=== PATIENT | female | born 1945 | race Caucasian/White ===

== ENCOUNTER 2019-11-22 13:25 | Emergency (ER) | payer MEDICARE, OTHER ==
[~2019-11-22] VITALS: Ht 175.3 cm; Wt 97.3 kg
[2019-11-22 14:06] LABS: BASOPHILS # (AUTO) 0.1 X10'3 (0-0.2); BASOPHILS % (AUTO) 1.1 % (0-1); EOSINOPHILS # (AUTO) 0.1 X10'3 (0-0.9); EOSINOPHILS % (AUTO) 1.7 % (0-6); HEMOGLOBIN 13.9 g/dl (12.0-16.0); LYMPHOCYTES # (AUTO) 1.5 X10'3 (1.1-4.8); LYMPHOCYTES % (AUTO) 23.3 % (21-51); MEAN CORPUSCULAR HEMOGLOBIN 32.1 PG (27.0-31.0); MEAN CORPUSCULAR HGB CONC 35.5 g/dL (33.0-36.5); MEAN CORPUSCULAR VOLUME 90.4 FL (78-98); MEAN PLATELET VOLUME 7.2 FL (7.4-10.4); MONOCYTES # (AUTO) 0.3 X10'3 (0-0.9); MONOCYTES % (AUTO) 5.4 % (2-12); NEUTROPHILS # (AUTO) 4.3 X10'3 (1.8-7.7); NEUTROPHILS % (AUTO) 68.5 % (42-75); PLATELET COUNT 223 X10'3 (140-440); RED BLOOD COUNT 4.31 X10'6 (4.20-5.60); WHITE BLOOD COUNT 6.3 X10'3 (4.5-11.0)
[2019-11-22 14:19] LABS: ALANINE AMINOTRANSFERASE 26 U/L (12-78); ALBUMIN 3.9 G/DL (3.4-5.0); ALBUMIN/GLOBULIN RATIO 1.1 (1.1-1.5); ALKALINE PHOSPHATASE 177 IU/L (46-116); ANION GAP 12 (8-16); ASPARTATE AMINO TRANSFERASE 20 U/L (10-37); BILIRUBIN,TOTAL 0.5 MG/DL (0.1-1.0); BLOOD UREA NITROGEN 13 MG/DL (7-18); BUN/CREATININE RATIO 13.3 (6.6-38.0); CALCIUM 10.1 MG/DL (8.5-10.1); CHLORIDE 101 MMOL/L (99-107); CREATININE 0.98 MG/DL (0.40-0.90); GLUCOSE 153 MG/DL (70-104); POTASSIUM 4.4 MMOL/L (3.5-5.1); SODIUM 138 MMOL/L (135-145); TOTAL CARBON DIOXIDE 25.4 MMOL/L (24-32); TOTAL PROTEIN 7.6 G/DL (6.4-8.2); eGFR 55 ML/MIN
[2019-11-22] MEDS ORDERED: ketorolac trometh inj. 60 MG/2 ML VIAL IM ONE (14:20)
[2019-11-22] MEDS ORDERED: LIDOcaine Viscous 15ml cup MM ONE (14:45)
[2019-11-22] MEDS ORDERED: mag hydrox/Alum hydrox/simeth 30ml oral suspension PO ONE (14:45)
[2019-11-22 15:00] VITALS: BP 155/80
== END 2019-11-22 16:18 | disposition home or self-care (01) ==
LOC: ER 13:27
DX: R07.89 Other chest pain (principal); R10.13 Epigastric pain; R05 Cough; Z85.3 Personal history of malignant neoplasm of breast
CPT/HCPCS: 36415; 71045; 80053; 84484; 85025; 93005; 96372; 99284; J1885

== ENCOUNTER 2020-01-15 14:43 | Emergency (ER) | payer MEDICARE, OTHER ==
[~2020-01-15] VITALS: Ht 175.3 cm; Wt 98.6 kg
[2020-01-15] MEDS ORDERED: normal saline 1000ML IV soln IVB ONE (15:45)
--- NOTE | 2020-01-15 16:05 | NUR ---
pt returns from ct
[2020-01-15 16:16] VITALS: BP 146/78
[2020-01-15 16:36] LABS: BASOPHILS # (AUTO) 0.1 X10'3 (0-0.2); BASOPHILS % (AUTO) 1.5 % (0-1); EOSINOPHILS # (AUTO) 0.4 X10'3 (0-0.9); HEMATOCRIT 37.6 % (35.0-45.0); HEMOGLOBIN 13.3 g/dl (12.0-16.0); LYMPHOCYTES # (AUTO) 1.3 X10'3 (1.1-4.8); LYMPHOCYTES % (AUTO) 21.6 % (21-51); MEAN CORPUSCULAR HEMOGLOBIN 31.5 PG (27.0-31.0); MEAN CORPUSCULAR HGB CONC 35.4 g/dL (33.0-36.5); MEAN CORPUSCULAR VOLUME 89.1 FL (78-98); MEAN PLATELET VOLUME 6.9 FL (7.4-10.4); MONOCYTES # (AUTO) 0.5 X10'3 (0-0.9); NEUTROPHILS # (AUTO) 3.8 X10'3 (1.8-7.7); NEUTROPHILS % (AUTO) 62.9 % (42-75); PLATELET COUNT 216 X10'3 (140-440); RED BLOOD COUNT 4.22 X10'6 (4.20-5.60); RED CELL DISTRIBUTION WIDTH 13.2 % (11.5-14.5)
[2020-01-15 16:45] LABS: ALANINE AMINOTRANSFERASE 20 U/L (12-78); ALBUMIN 3.5 G/DL (3.4-5.0); ALBUMIN/GLOBULIN RATIO 0.9 (1.1-1.5); ALKALINE PHOSPHATASE 202 IU/L (46-116); ANION GAP 6 (8-16); ASPARTATE AMINO TRANSFERASE 22 U/L (10-37); BILIRUBIN,TOTAL 0.4 MG/DL (0.1-1.0); BLOOD UREA NITROGEN 16 MG/DL (7-18); BUN/CREATININE RATIO 17.4 (6.6-38.0); CALCIUM 9.6 MG/DL (8.5-10.1); CHLORIDE 105 MMOL/L (99-107); CREATININE 0.92 MG/DL (0.40-0.90); GLUCOSE 247 MG/DL (70-104); POTASSIUM 3.9 MMOL/L (3.5-5.1); SODIUM 138 MMOL/L (135-145); TOTAL CARBON DIOXIDE 27.2 MMOL/L (24-32); TOTAL PROTEIN 7.3 G/DL (6.4-8.2); eGFR 59 ML/MIN
[2020-01-15] MEDS: morphine 4 MG/ML inj SYRINge IV PRN ×2 (16:47→17:18)
[2020-01-15 16:48] LABS: LIPASE 121 U/L (73-393); TROPONIN I < 0.04 NG/ML (0.0-0.05)
[2020-01-15] MEDS ORDERED: HYDR-3965 PO (17:04)
[2020-01-15] MEDS ORDERED: AMOX-117 PO (17:07)
== END 2020-01-15 17:39 | disposition home or self-care (01) ==
LOC: ER 14:43
DX: C79.89 Secondary malignant neoplasm of other specified sites (principal); C50.919 Malignant neoplasm of unspecified site of unspecified female breast; M54.9 Dorsalgia, unspecified; Z79.2 Long term (current) use of antibiotics; Z79.899 Other long term (current) drug therapy
CPT/HCPCS: 36415; 74176; 80053; 83690; 84484; 85025; 93005; 96374; 96376; 99285; J2270; J7030

== ENCOUNTER 2020-05-07 16:15 | Emergency (ER) | payer OTHER ==
[~2020-05-07] VITALS: Ht 170.2 cm; Wt 100.0 kg
[2020-05-07 16:22] VITALS: BP 186/91
--- NOTE | 2020-05-07 17:12 | NUR ---
pt is 75 yo female c/o neck pain since 0800 today, no recent falls/trauma, no loss of bowel/bladder, decreased ROM to neck due to pain, h/o breast cancer with mets to left hip, spine, neck, pelvis, being treated with supplements and holistic care, mets was dx in 01/16, no follow up except with holistic provider,
[2020-05-07] MEDS ORDERED: ketorolac tromethamine 15mg/ml inj. IM ONE (17:55)
[2020-05-07] MEDS ORDERED: orphenadrine citrate 60mg/2ml inj. IM ONE (17:55)
[2020-05-07] MEDS ORDERED: NAPR-56 PO (17:55)
[2020-05-07] MEDS ORDERED: METH-360 PO (17:55)
== END 2020-05-07 18:42 | disposition home or self-care (01) ==
LOC: ER 16:16
DX: M54.2 Cervicalgia (principal); G89.29 Other chronic pain; Z85.3 Personal history of malignant neoplasm of breast; Z79.899 Other long term (current) drug therapy
CPT/HCPCS: 96372; 99284; J1885; J2360

== ENCOUNTER 2021-01-15 08:26 | Emergency (ER) | payer OTHER ==
[~2021-01-15] VITALS: Ht 175.3 cm; Wt 94.1 kg
[~2021-01-15 08:26] MED LIST: METH-360 PO
[2021-01-15 08:51] LABS: BASOPHILS # (AUTO) 0.1 X10'3 (0-0.2); BASOPHILS % (AUTO) 0.9 % (0-1); EOSINOPHILS % (AUTO) 0.8 % (0-6); HEMATOCRIT 34.5 % (35.0-45.0); HEMOGLOBIN 11.9 g/dl (12.0-16.0); LYMPHOCYTES % (AUTO) 17.3 % (21-51); MEAN CORPUSCULAR HEMOGLOBIN 30.4 PG (27.0-31.0); MEAN CORPUSCULAR HGB CONC 34.3 g/dL (33.0-36.5); MEAN CORPUSCULAR VOLUME 88.7 FL (78-98); MEAN PLATELET VOLUME 6.3 FL (7.4-10.4); MONOCYTES # (AUTO) 0.3 X10'3 (0-0.9); MONOCYTES % (AUTO) 4.8 % (2-12); NEUTROPHILS # (AUTO) 4.5 X10'3 (1.8-7.7); NEUTROPHILS % (AUTO) 76.2 % (42-75); PLATELET COUNT 276 X10'3 (140-440); RED BLOOD COUNT 3.89 X10'6 (4.20-5.60); RED CELL DISTRIBUTION WIDTH 14.5 % (11.5-14.5); WHITE BLOOD COUNT 5.9 X10'3 (4.5-11.0)
[2021-01-15 09:10] LABS: ALANINE AMINOTRANSFERASE 14 U/L (12-78); ALBUMIN 3.4 G/DL (3.4-5.0); ALBUMIN/GLOBULIN RATIO 0.8 (1.1-1.5); ALKALINE PHOSPHATASE 285 IU/L (46-116); ASPARTATE AMINO TRANSFERASE 40 U/L (10-37); BILIRUBIN,TOTAL 0.6 MG/DL (0.1-1.0); BLOOD UREA NITROGEN 15 MG/DL (7-18); BUN/CREATININE RATIO 14.3 (6.6-38.0); CALCIUM 10.5 MG/DL (8.5-10.1); CHLORIDE 103 MMOL/L (99-107); CREATININE 1.05 MG/DL (0.40-0.90); GLUCOSE 194 MG/DL (70-104); LIPASE 81 U/L (73-393); TOTAL CARBON DIOXIDE 26.5 MMOL/L (24-32); TOTAL PROTEIN 7.8 G/DL (6.4-8.2); eGFR 51 ML/MIN
[2021-01-15] MEDS ORDERED: HYDROcodone/acetaminophen 10/325mg tab PO ONE (09:10)
[2021-01-15] MEDS ORDERED: ondansetron 4mg rapidly disintigrating tab PO ONE (09:10)
[2021-01-15 09:15] LABS: ANION GAP 12 (8-16); POTASSIUM 3.9 MMOL/L (3.5-5.1); SODIUM 141 MMOL/L (135-145)
--- NOTE | 2021-01-15 09:20 | NUR ---
Pt transported to CT via [facility] with tech.
[2021-01-15 09:26] LABS: CLARITY,URINE SLIGHTLY CLOUDY (Clear); COLOR,URINE YELLOW (Yellow); GLUCOSE, URINE NEGATIVE (Neg); KETONES,URINE NEGATIVE (Neg); LEUKOCYTE ESTERASE ,URINE NEGATIVE (Neg); NITRITES, URINE NEGATIVE (Neg); OCCULT BLOOD,URINE NEGATIVE (Neg); PROTEIN,URINE NEGATIVE (Neg); UROBILINOGEN,URINE 0.2 E.U/dL (0.2-1.0)
[2021-01-15 09:28] LABS: UA COLLECTION TYPE STRAIGHT CATH
[2021-01-15 09:32] LABS: AMORPHOUS PHOSPHATES 3+; BACTERIA,URINE NONE SEEN /HPF (Neg); MUCUS STRANDS NONE SEEN /LPF (Neg); RBC,URINE NONE SEEN /HPF (0-2); SQUAMOUS EPITHELIAL CELL,UR FEW /LPF (FEW); WBC,URINE NONE SEEN /HPF (0-4)
[2021-01-15] MEDS ORDERED: bisacodyl 5mg tablet.DR PO ONE (10:20)
[2021-01-15] MEDS ORDERED: POLY119P2 PO (10:22)
[2021-01-15] MEDS ORDERED: BISA-78 PO (10:22)
[2021-01-15] MEDS ORDERED: normal saline 1000ml 1,000 ML IV ONE (10:30)
[2021-01-15 11:42] VITALS: BP 141/74
== END 2021-01-15 11:44 | disposition home or self-care (01) ==
LOC: ER 08:26
DX: E83.52 Hypercalcemia (principal); R10.31 Right lower quadrant pain; K59.00 Constipation, unspecified; G89.29 Other chronic pain; Z85.3 Personal history of malignant neoplasm of breast; Z79.899 Other long term (current) drug therapy
CPT/HCPCS: 36415; 74176; 80053; 81001; 83690; 85025; 96361; 99284; J7030

== ENCOUNTER 2021-01-16 08:24 | Emergency (ER) | payer OTHER ==
[~2021-01-16] VITALS: Ht 175.3 cm; Wt 94.1 kg
[~2021-01-16 08:24] MED LIST changes: +BISA-78 PO; +POLY119P2 PO
[2021-01-16] MEDS ORDERED: bisacodyl 10mg suppository rectal RC STA (08:47)
[2021-01-16] MEDS ORDERED: normal saline 1000ml 1,000 ML IV ONE (08:50)
[2021-01-16] MEDS ORDERED: methylnaltrexone br 12mg/0.6ml inj***SubQ only SQ ONE (08:50)
[2021-01-16] MEDS ORDERED: morphine 4 MG/ML inj SYRINge IV ONE (08:50)
[2021-01-16] MEDS ORDERED: metoclopramide 5 mg/ml inj IV ONE (08:50)
[2021-01-16] MEDS ORDERED: ciprofloxacin 250mg tablet PO ONE (11:20)
[2021-01-16] MEDS ORDERED: magnesium citrate 296ml oral solution PO ONE (12:25)
[2021-01-16 13:50] VITALS: BP 170/96
== END 2021-01-16 15:25 | disposition home or self-care (01) ==
LOC: ER 08:24
DX: K59.00 Constipation, unspecified (principal); R11.0 Nausea; G89.29 Other chronic pain; Z85.3 Personal history of malignant neoplasm of breast; Z79.899 Other long term (current) drug therapy
CPT/HCPCS: 82948; 96361; 96372; 96374; 96375; 99284; J2212; J2270; J2765; J7030

== ENCOUNTER 2021-03-05 21:14 | Inpatient (IN) | payer OTHER ==
[~2021-03-05] VITALS: Ht 167.6 cm; Wt 100.0 kg
[2021-03-05 22:03] LABS: BASOPHILS # (AUTO) 0.1 X10'3 (0-0.2); EOSINOPHILS # (AUTO) 0.2 X10'3 (0-0.9); HEMOGLOBIN 11.2 g/dl (12.0-16.0); LYMPHOCYTES # (AUTO) 1.8 X10'3 (1.1-4.8); MEAN PLATELET VOLUME 6.7 FL (7.4-10.4); MONOCYTES # (AUTO) 0.4 X10'3 (0-0.9)
[2021-03-05 22:05] LABS: BASOPHILS % (AUTO) 1.2 % (0-1); EOSINOPHILS % (AUTO) 3.6 % (0-6); HEMATOCRIT 32.8 % (35.0-45.0); LYMPHOCYTES % (AUTO) 34.7 % (21-51); MEAN CORPUSCULAR HEMOGLOBIN 30.6 PG (27.0-31.0); MEAN CORPUSCULAR VOLUME 90.1 FL (78-98); MONOCYTES % (AUTO) 7.5 % (2-12); NEUTROPHILS # (AUTO) 2.7 X10'3 (1.8-7.7); PLATELET COUNT 242 X10'3 (140-440); RED BLOOD COUNT 3.64 X10'6 (4.20-5.60); RED CELL DISTRIBUTION WIDTH 15.7 % (11.5-14.5); WHITE BLOOD COUNT 5.2 X10'3 (4.5-11.0)
[2021-03-05 22:14] LABS: ALANINE AMINOTRANSFERASE 16 U/L (12-78); ALBUMIN 3.4 G/DL (3.4-5.0); ALBUMIN/GLOBULIN RATIO 0.8 (1.1-1.5); ALKALINE PHOSPHATASE 276 IU/L (46-116); ANION GAP 10 (8-16); ASPARTATE AMINO TRANSFERASE 30 U/L (10-37); BILIRUBIN,TOTAL 0.6 MG/DL (0.1-1.0); BLOOD UREA NITROGEN 18 MG/DL (7-18); BUN/CREATININE RATIO 21.4 (6.6-38.0); CHLORIDE 104 MMOL/L (99-107); CREATININE 0.84 MG/DL (0.40-0.90); GLUCOSE 152 MG/DL (70-104); PARTIAL THROMBOPLASTIN TIME 25 SECONDS (22-32); POTASSIUM 4.1 MMOL/L (3.5-5.1); SODIUM 141 MMOL/L (135-145); TOTAL CARBON DIOXIDE 27.5 MMOL/L (24-32); TOTAL PROTEIN 7.6 G/DL (6.4-8.2); eGFR 66 ML/MIN
[2021-03-05 22:16] LABS: ETHANOL < 0.010 GM/DL (0.0-0.010); LIPASE 175 U/L (73-393); TROPONIN I < 0.04 NG/ML (0.0-0.05)
--- NOTE | 2021-03-05 22:39 | NUR ---
Consulted with Dr. Gaxiola regarding premedicating pt for pain prior to reduction of left femur. Dr. Gaxiola put in a verbal order for 50mcg of Fentanyl
[2021-03-05] MEDS ORDERED: fentaNYL/PF 50MCG/1 ML 2ML syringe IV ONE (22:40)
[2021-03-05] MEDS ORDERED: potassium Cl 20 mEq SR tablet PO PRN ×2 (22:40)
[2021-03-05] MEDS ORDERED: magnesium Cl slow-release 64mg tablet PO PRN (22:40)
[2021-03-05] MEDS ORDERED: magnesium 4gm in 100ml NS 100 ML IV PRN (22:40)
[2021-03-05] MEDS ORDERED: ondansetron/PF 4mg/2ml inj IV PRN (22:40)
[2021-03-05] MEDS ORDERED: magnesium 2GM in 50ml NS 50 ML IV PRN (22:40)
[2021-03-05] MEDS ORDERED: acetaminophen 325mg tablet PO PRN (22:40)
[2021-03-05] MEDS ORDERED: potassium Cl 40MEQ/1/2NS 520ml 520 ML IV PRN ×2 (22:40)
[2021-03-05] MEDS ORDERED: morphine 2 MG/ML inj. syringe IV PRN ×2 (22:40)
[2021-03-05] MEDS: normal saline 1000ml 1,000 ML IV SCH (22:51)
[2021-03-05] MEDS ORDERED: cyclobenzaprine 10mg tablet PO ONE (23:00)
[2021-03-06 00:04] LABS: CLARITY,URINE CLEAR (Clear); COLOR,URINE YELLOW (Yellow); GLUCOSE, URINE NEGATIVE (Neg); KETONES,URINE NEGATIVE (Neg); LEUKOCYTE ESTERASE ,URINE NEGATIVE (Neg); NITRITES, URINE NEGATIVE (Neg); OCCULT BLOOD,URINE NEGATIVE (Neg); PH,URINE 5.5 (4.8-8.0); PROTEIN,URINE NEGATIVE (Neg); UROBILINOGEN,URINE 0.2 E.U/dL (0.2-1.0)
[2021-03-06 00:06] LABS: UA COLLECTION TYPE FOLEY CATH
[2021-03-06] MEDS ORDERED: HYDR-3965 PO (00:13)
[2021-03-06] MEDS ORDERED: DILT120T3 PO (00:13)
[2021-03-06 00:23] LABS: URINE CANNABINOID SCREEN NEGATIVE (Neg); URINE COCAINE SCREEN NEGATIVE (Neg); URINE METHADONE SCREEN NEGATIVE (Neg); URINE PHENCYCLIDINE SCREEN NEGATIVE (Neg)
[2021-03-06 00:38] LABS: URINE AMPHETAMINE SCREEN NEGATIVE (Neg)
[2021-03-06 00:39] LABS: URINE BARBITUATE SCREEN NEGATIVE (Neg); URINE BENZODIAZEPINES SCREEN NEGATIVE (Neg); URINE OPIATE SCREEN POSITIVE (Neg)
[2021-03-06 01:00] VITALS: BP 154/85
--- NOTE | 2021-03-06 05:48 | NUR ---
DARTed patient. Unable to do full body skin check, as patient L femur too painful and unstable. Patient stated that she has an abscess that is on her R buttock that her massage therapist stated has a little puss (massage on 03/05/21). will notify next shift to picture after surgery. R breast is deformed with hard skin, due to mastectomy X2. nothing open.
[2021-03-06 06:00] VITALS: BP 143/66
--- NOTE | 2021-03-06 06:23 | NUR ---
Problems reprioritized. Patient report given, questions answered & plan of care reviewed with LEOBARDO Ku. Addendum: 03/06/21 at 0624 by Jenny Chin RN reviewed with isacc
[2021-03-06 07:27] LABS: BASOPHILS % (AUTO) 0.9 % (0-1); EOSINOPHILS # (AUTO) 0.1 X10'3 (0-0.9); EOSINOPHILS % (AUTO) 1.1 % (0-6); HEMATOCRIT 29.8 % (35.0-45.0); HEMOGLOBIN 10.1 g/dl (12.0-16.0); LYMPHOCYTES # (AUTO) 1.2 X10'3 (1.1-4.8); MEAN CORPUSCULAR HEMOGLOBIN 30.7 PG (27.0-31.0); MEAN CORPUSCULAR HGB CONC 33.9 g/dL (33.0-36.5); MEAN CORPUSCULAR VOLUME 90.5 FL (78-98); MEAN PLATELET VOLUME 6.7 FL (7.4-10.4); MONOCYTES # (AUTO) 0.4 X10'3 (0-0.9); MONOCYTES % (AUTO) 7.2 % (2-12); NEUTROPHILS # (AUTO) 3.6 X10'3 (1.8-7.7); NEUTROPHILS % (AUTO) 68.8 % (42-75); PLATELET COUNT 204 X10'3 (140-440); RED BLOOD COUNT 3.29 X10'6 (4.20-5.60); RED CELL DISTRIBUTION WIDTH 15.7 % (11.5-14.5); WHITE BLOOD COUNT 5.3 X10'3 (4.5-11.0)
[2021-03-06 07:39] LABS: ANION GAP 8 (8-16); BLOOD UREA NITROGEN 16 MG/DL (7-18); BUN/CREATININE RATIO 20.8 (6.6-38.0); CALCIUM 9.8 MG/DL (8.5-10.1); CHLORIDE 107 MMOL/L (99-107); CREATININE 0.77 MG/DL (0.40-0.90); GLUCOSE 139 MG/DL (70-104); MAGNESIUM 1.6 MG/DL (1.5-2.4); SODIUM 143 MMOL/L (135-145); TOTAL CARBON DIOXIDE 28.4 MMOL/L (24-32); eGFR 73 ML/MIN
[2021-03-06] MEDS: docusate sod 100mg capsule PO SCH ×2 (08:00→20:19)
[2021-03-06] MEDS: K and/or MAG REPLACEMENT MC SCH ×2 (08:00→18:29)
[2021-03-06 10:00] VITALS: BP 139/86
[2021-03-06] MEDS: diltiazem CD 120mg capsule (once-daily) PO SCH (12:20)
[2021-03-06] MEDS ORDERED: morphine 2 MG/ML inj. syringe IV PRN (14:25)
[2021-03-06] MEDS ORDERED: morphine 4 MG/ML inj SYRINge IV PRN ×2 (14:25→18:50)
--- NOTE | 2021-03-06 16:03 | NUR ---
Malnutrition consult: Pt seen at bedside reports 22 lb wt loss in 6 weeks with last scaled weight being 188 lbs taken at home in January by health care RN, then reports appetite has been poor for 1.5 years secondary to cancer dx and scale at home isn't working d/t needing new batteries. Current documented wt is 220 lbs however isn't scaled and pt unsure of what current wt is. Pt does mention hx of rapid weight gain and intentional wt loss. Pt reports poor appetite and PO intake KOSHER BUTCHER however then reported PO intake at home consisting of fruits, vegetables, soups, smoothies, protein/meal replacement shakes, eggs, bread, fish, and occasionally meat. Patient's diet has just been advanced to vegetarian, dinner to be first meal since advancement from NPO. Pt endorses a good appetite at this time. Pt with no visible fat and muscle wasting. No documented decrease in muscle strength or edema. Pt currently lacks a minimum of two criteria for malnutrition however at high risk for malnutrition given stage IV metastatic breast CA. Per RN pt not seeking tx for CA at this time. Food preferences were obtained and d/w dietary. Pt requests strawberry/banana and peach smoothie BIDBD, no milk to drink (sub almond milk), and no peppers. DM consult: No A1c, d/w RN need for A1c to determine need for DM education. BG range 123-152 mg/dL since admit. Pt states she does not take any medications for DM management and was previously checking blood sugars however she stopped d/t glucometer not working. Pt reports inquiring about getting a new glucometer though when she was informed that it doesn't report to her phone she opted to not get a glucometer. Will monitor need for further DM education pending A1c lab draw. Pt provided with RD contact information. Addendum: 03/06/21 at [address] Amended: Links added.
[2021-03-06] MEDS: HYDROcodone/acetaminophen 5mg/325mg tablet PO PRN (17:36)
[2021-03-06 18:00] VITALS: BP 143/75
[2021-03-06] MEDS ORDERED: enoxaparin 40mg/0.4ml syringe SUBCUT ONE (20:00)
[2021-03-07] MEDS: morphine 2 MG/ML inj. syringe IV PRN ×3 (02:13→20:50)
[2021-03-07 06:00] VITALS: BP 151/68
--- NOTE | 2021-03-07 06:11 | NUR ---
REPORT GIVEN TO LEOBARDO JEWELL.
[2021-03-07 07:18] LABS: BASOPHILS % (AUTO) 0.6 % (0-1); EOSINOPHILS # (AUTO) 0.1 X10'3 (0-0.9); EOSINOPHILS % (AUTO) 1.4 % (0-6); HEMATOCRIT 31.1 % (35.0-45.0); HEMOGLOBIN 10.6 g/dl (12.0-16.0); LYMPHOCYTES # (AUTO) 1.1 X10'3 (1.1-4.8); LYMPHOCYTES % (AUTO) 19.7 % (21-51); MEAN CORPUSCULAR HEMOGLOBIN 30.7 PG (27.0-31.0); MEAN CORPUSCULAR HGB CONC 34.1 g/dL (33.0-36.5); MEAN CORPUSCULAR VOLUME 90.1 FL (78-98); MEAN PLATELET VOLUME 6.8 FL (7.4-10.4); MONOCYTES # (AUTO) 0.5 X10'3 (0-0.9); MONOCYTES % (AUTO) 8.2 % (2-12); NEUTROPHILS # (AUTO) 4.1 X10'3 (1.8-7.7); NEUTROPHILS % (AUTO) 70.1 % (42-75); PLATELET COUNT 210 X10'3 (140-440); RED BLOOD COUNT 3.45 X10'6 (4.20-5.60); RED CELL DISTRIBUTION WIDTH 15.9 % (11.5-14.5); WHITE BLOOD COUNT 5.8 X10'3 (4.5-11.0)
[2021-03-07 07:24] LABS: ANION GAP 11 (8-16); BLOOD UREA NITROGEN 13 MG/DL (7-18); BUN/CREATININE RATIO 14.4 (6.6-38.0); CALCIUM 9.7 MG/DL (8.5-10.1); CHLORIDE 104 MMOL/L (99-107); GLUCOSE 172 MG/DL (70-104); MAGNESIUM 1.8 MG/DL (1.5-2.4); POTASSIUM 3.9 MMOL/L (3.5-5.1); SODIUM 141 MMOL/L (135-145); TOTAL CARBON DIOXIDE 26.2 MMOL/L (24-32); eGFR 61 ML/MIN
[2021-03-07] MEDS: diltiazem CD 120mg capsule (once-daily) PO SCH (07:41)
[2021-03-07] MEDS: docusate sod 100mg capsule PO SCH ×2 (07:41→20:48)
--- NOTE | 2021-03-07 07:50 | NUR ---
PAGER ID: [phone] MESSAGE: Elmira Alvarez [id number] RE: Minda Sykes [id number].. May pt have Carb control diet? Thank you
[2021-03-07] MEDS: K and/or MAG REPLACEMENT MC SCH ×2 (08:00→18:47)
[2021-03-07 10:00] VITALS: BP 145/51
--- NOTE | 2021-03-07 11:02 | NUR ---
PAGER ID: [phone] MESSAGE: Elmira BOOTH [phone] RE: Krysten Sykes [id number].. Pt AM blood glucose was 163 can we order hyperglycemia protocol as well as A1C? Thank you.
[2021-03-07] MEDS ORDERED: dextrose 50%-water 50ml dispensing syringe IV PRN ×2 (11:15)
[2021-03-07] MEDS ORDERED: dextrose ORAL solution 15 GM/59 ML bottle PO PRN ×2 (11:15)
[2021-03-07] MEDS ORDERED: glucagon, human recombinant 1mg kit SUBCUT PRN (11:15)
[2021-03-07] MEDS ORDERED: MESSAGE TO PHARMACY PO ONE (11:15)
--- NOTE | 2021-03-07 13:30 | NUR ---
F/u 03/07: Pt A1C less than 7 and not appropriate for DM ed at this time. Pt now w/ carb controlled diet in place and essentially not drinking any of smoothies/almond milks given CHO content even after RN education per RN today. RN reports pt is agreeable to high protein ONS; RD recommends ensure high protein TIDWM since lowest CHO option may make pt more agreeable to consume. RN reports will page MD regarding ONS recs. Addendum: 03/07/21 at [address] Amended: Links added.
[2021-03-07] MEDS: insulin Lispro (HumaLOG) vial - multi-dose SQ SCH (13:41)
--- NOTE | 2021-03-07 13:47 | NUR ---
PAGER ID: [phone] MESSAGE: Elmira Alvarez [id number] RE:Krysten Sykes [id number]. Pt requesting protein drink ok to order Ensure high protein? Thank you.
[2021-03-07] MEDS: normal saline 1000ml 1,000 ML IV SCH (16:47)
[2021-03-07] MEDS: lactose-reduced food (Ensure High Protein) 237ml bottle PO SCH (18:00)
--- NOTE | 2021-03-07 18:41 | NUR ---
Problems reprioritized. Patient report given, questions answered & plan of care reviewed with Pauly louie.
[2021-03-07] MEDS: insulin glargine (Lantus) pen - multi-dose SQ SCH (21:19)
[2021-03-07 22:00] VITALS: BP 103/55
[2021-03-08] VITALS (20 sets, daily range): BP systolic 96–152; BP diastolic 45–66
[2021-03-08] MEDS: morphine 2 MG/ML inj. syringe IV PRN (01:19)
[2021-03-08 05:57] LABS: BASOPHILS % (AUTO) 0.5 % (0-1); EOSINOPHILS # (AUTO) 0.1 X10'3 (0-0.9); EOSINOPHILS % (AUTO) 2.4 % (0-6); HEMATOCRIT 31.6 % (35.0-45.0); HEMOGLOBIN 10.5 g/dl (12.0-16.0); LYMPHOCYTES # (AUTO) 1.1 X10'3 (1.1-4.8); LYMPHOCYTES % (AUTO) 20.3 % (21-51); MEAN CORPUSCULAR HEMOGLOBIN 30.3 PG (27.0-31.0); MEAN CORPUSCULAR HGB CONC 33.4 g/dL (33.0-36.5); MEAN CORPUSCULAR VOLUME 90.8 FL (78-98); MEAN PLATELET VOLUME 6.5 FL (7.4-10.4); MONOCYTES # (AUTO) 0.5 X10'3 (0-0.9); MONOCYTES % (AUTO) 9.5 % (2-12); NEUTROPHILS # (AUTO) 3.8 X10'3 (1.8-7.7); NEUTROPHILS % (AUTO) 67.3 % (42-75); PLATELET COUNT 201 X10'3 (140-440); RED BLOOD COUNT 3.48 X10'6 (4.20-5.60); RED CELL DISTRIBUTION WIDTH 16.1 % (11.5-14.5); WHITE BLOOD COUNT 5.6 X10'3 (4.5-11.0)
[2021-03-08 06:05] LABS: ALBUMIN 2.8 G/DL (3.4-5.0); ANION GAP 9 (8-16); CALCIUM 9.5 MG/DL (8.5-10.1); CHLORIDE 104 MMOL/L (99-107); CREATININE 0.72 MG/DL (0.40-0.90); GLUCOSE 164 MG/DL (70-104); MAGNESIUM 1.7 MG/DL (1.5-2.4); SODIUM 140 MMOL/L (135-145); TOTAL CARBON DIOXIDE 26.6 MMOL/L (24-32); eGFR 79 ML/MIN
[2021-03-08 06:16] LABS: BLOOD UREA NITROGEN 11 MG/DL (7-18); BUN/CREATININE RATIO 15.3 (6.6-38.0)
--- NOTE | 2021-03-08 06:36 | NUR ---
REPORT GIVEN TO LEOBARDO NYE.
--- NOTE | 2021-03-08 06:49 | NUR ---
Patient in room ORTHO 4021A. I have received report from LEOBARDO HARE and had the opportunity to ask questions and assume patient care.
[2021-03-08] MEDS: K and/or MAG REPLACEMENT MC SCH ×2 (07:05→19:07)
[2021-03-08] MEDS: insulin Lispro (HumaLOG) vial - multi-dose SQ SCH ×2 (07:44→18:54)
[2021-03-08] MEDS: diltiazem CD 120mg capsule (once-daily) PO SCH (07:45)
[2021-03-08] MEDS: lactose-reduced food (Ensure High Protein) 237ml bottle PO SCH ×3 (07:53→18:00)
[2021-03-08] MEDS: docusate sod 100mg capsule PO SCH ×2 (07:53→20:00)
[2021-03-08] MEDS ORDERED: BUPIVAcaine 0.5% W/EPI /PF 30ml vial ONE (13:35)
[2021-03-08] MEDS ORDERED: fentaNYL/PF 50MCG/1 ML 2ML syringe ONE (13:46)
[2021-03-08] MEDS ORDERED: MIDAZolam 1 MG/ML 5ML VIAL ONE (13:47)
[2021-03-08] MEDS ORDERED: ceFAZolin 1000mg inj ONE ×2 (14:07)
[2021-03-08] MEDS ORDERED: ePHEDrine 50MG/ML INJ. ONE (14:15)
[2021-03-08] MEDS ORDERED: morphine 2 MG/ML inj. syringe IV PRN (14:45)
[2021-03-08] MEDS ORDERED: ringers solution, lacted 1,000 ML IV SCH (14:45)
[2021-03-08] MEDS ORDERED: ondansetron/PF 4mg/2ml inj IV PRN (14:45)
[2021-03-08] MEDS ORDERED: meperidine/PF 25mg/ml syringe IV PRN ×3 (14:45)
[2021-03-08] MEDS ORDERED: proCHLORperazine 10 MG/2 ml inj IV PRN (14:45)
[2021-03-08] MEDS ORDERED: morphine 4 MG/ML inj SYRINge IV PRN (14:45)
[2021-03-08] MEDS ORDERED: albumin (Human) 5% 250ml 250 ML IV ONE (15:18)
--- NOTE | 2021-03-08 15:30 | NUR ---
Received from OR via BED, accompanied by Anesthesiologist ANKIT and report given by Anesthesiolgist. PT DROWSY, OXYGENATING WELL ON 10 LPM O2 VIA MASK, NO RESP DISTRESS NOTED. NO COMPLAINTS OF NAUSEA OR PAIN AT THIS TIME, HAD SAB. NO MOVEMENT OR SENSATION FROM THE UMBILICUS DOWN. UNABLE TO CHECK PEDAL PULSES DUE TO WRAPS ON FEET. TOES ARE COOL AND PINK, GOOD CAP REFILL. 2 SMALL GAUZE OCCLUSIVE DSGS ON LEFT LATERAL THIGH, CDI. FC PATENT, SCDS ON. VSS, WILL CONTINUE TO MONITOR.
--- NOTE | 2021-03-08 16:30 | NUR ---
PACU DISCHARGE CRITERIA MET, REPORT GIVEN TO FLOOR. DENIES PAIN OR DISCOMFORT, TRANSFERRED TO ROOM IN STABLE GOOD CONDITION.
[2021-03-08] MEDS ORDERED: DILT240T PO (16:40)
[2021-03-08] MEDS: ceFAZolin 1GM/D5W- ADD-VANTAGE 50 ML IV SCH ×2 (17:44→23:16)
--- NOTE | 2021-03-08 18:23 | NUR ---
Problems reprioritized. Patient report given, questions answered & plan of care reviewed with LEOBARDO RAVI.
[2021-03-08] MEDS: insulin glargine (Lantus) pen - multi-dose SQ SCH (20:46)
[2021-03-08] MEDS: HYDROcodone/acetaminophen 5mg/325mg tablet PO PRN (23:17)
[2021-03-08] MEDS: normal saline 1000ml 1,000 ML IV SCH (23:18)
[2021-03-09 02:00] VITALS: BP 120/59
[2021-03-09 02:32] LABS: BASOPHILS % (AUTO) 0.4 % (0-1); EOSINOPHILS # (AUTO) 0.1 X10'3 (0-0.9); EOSINOPHILS % (AUTO) 1.1 % (0-6); HEMATOCRIT 27.9 % (35.0-45.0); HEMOGLOBIN 9.4 g/dl (12.0-16.0); LYMPHOCYTES # (AUTO) 0.8 X10'3 (1.1-4.8); LYMPHOCYTES % (AUTO) 16.5 % (21-51); MEAN CORPUSCULAR HEMOGLOBIN 30.4 PG (27.0-31.0); MEAN CORPUSCULAR HGB CONC 33.7 g/dL (33.0-36.5); MEAN CORPUSCULAR VOLUME 90.2 FL (78-98); MEAN PLATELET VOLUME 6.5 FL (7.4-10.4); MONOCYTES # (AUTO) 0.4 X10'3 (0-0.9); MONOCYTES % (AUTO) 8.6 % (2-12); NEUTROPHILS # (AUTO) 3.7 X10'3 (1.8-7.7); NEUTROPHILS % (AUTO) 73.4 % (42-75); PLATELET COUNT 165 X10'3 (140-440); RED BLOOD COUNT 3.09 X10'6 (4.20-5.60)
[2021-03-09 02:42] LABS: ALBUMIN 2.7 G/DL (3.4-5.0); ANION GAP 9 (8-16); BLOOD UREA NITROGEN 11 MG/DL (7-18); BUN/CREATININE RATIO 15.5 (6.6-38.0); CALCIUM 9.3 MG/DL (8.5-10.1); CHLORIDE 103 MMOL/L (99-107); CREATININE 0.71 MG/DL (0.40-0.90); GLUCOSE 169 MG/DL (70-104); MAGNESIUM 1.6 MG/DL (1.5-2.4); POTASSIUM 3.8 MMOL/L (3.5-5.1); SODIUM 137 MMOL/L (135-145); TOTAL CARBON DIOXIDE 24.6 MMOL/L (24-32); eGFR 80 ML/MIN
[2021-03-09] MEDS: HYDROcodone/acetaminophen 5mg/325mg tablet PO PRN ×2 (05:24→14:33)
[2021-03-09 06:00] VITALS: BP 145/71
--- NOTE | 2021-03-09 06:47 | NUR ---
Patient in room ORTHO 4021A. I have received report from LEOBARDO Alvarado and had the opportunity to ask questions and assume patient care.
[2021-03-09] MEDS: docusate sod 100mg capsule PO SCH ×2 (07:22→20:00)
[2021-03-09] MEDS: diltiazem CD 120mg capsule (once-daily) PO SCH (07:23)
[2021-03-09] MEDS: K and/or MAG REPLACEMENT MC SCH ×2 (08:00→19:21)
[2021-03-09] MEDS: lactose-reduced food (Ensure High Protein) 237ml bottle PO SCH ×3 (08:00→18:41)
[2021-03-09] MEDS: insulin Lispro (HumaLOG) vial - multi-dose SQ SCH ×2 (10:21→18:44)
--- NOTE | 2021-03-09 11:41 | NUR ---
Initial: Pt admit DX L femur fx, R femur lytic lesions r/t metastatic breast CA, T2DM A1C 6.8, and anemia r/t acute fracture per MD note. Pt initially on vegetarian diet though reports eats dairy outside milk to drink, eggs, and fish/meat at times; now advanced to carb controlled diet post-op. Pt PO remains poor this admit ~25-50% avg 3 days prior to NPO yesterday not meeting needs. Receiving ensure high protein TIDWM w/ PO 100% first this AM. Pt previously receiving smoothies and almond milks TIDWM per request though started refusing r/t CHO content despite RN education on g CHO per meals allowable. PO breakfast pending this AM. LBM 03/05 receiving routine colace; may benefit from additional bowel care as medically indicated post-op. Will monitor for PO diet acceptance and additional protein/kcal needs post-op. Rec: 1. continue carb controlled diet; encourage PO; no milk to drink per pt 2. ensure high protein TIDWM; encourage PO 3. routine bowel care; consider additional w/ 4 days constipation post-op 4. scaled wt this admit; subsequent weekly wts Addendum: 03/09/21 at [address] Amended: Links added.
--- NOTE | 2021-03-09 12:08 | NUR ---
acting as clinical instructor i reviewed student nurse documentation
--- NOTE | 2021-03-09 18:22 | NUR ---
Problems reprioritized. Patient report given, questions answered & plan of care reviewed with LEOBARDO RAVI.
[2021-03-09 18:30] VITALS: BP 136/51
[2021-03-09] MEDS: insulin glargine (Lantus) pen - multi-dose SQ SCH (20:57)
[2021-03-09 22:00] VITALS: BP 145/66
[2021-03-10] VITALS (19 sets, daily range): BP systolic 105–148; BP diastolic 44–58
[2021-03-10] MEDS: normal saline 1000ml 1,000 ML IV SCH ×2 (01:52→20:43)
[2021-03-10] MEDS: HYDROcodone/acetaminophen 5mg/325mg tablet PO PRN ×2 (03:35→20:42)
[2021-03-10 06:14] LABS: BASOPHILS % (AUTO) 0.3 % (0-1); EOSINOPHILS # (AUTO) 0.2 X10'3 (0-0.9); EOSINOPHILS % (AUTO) 2.3 % (0-6); HEMATOCRIT 27.2 % (35.0-45.0); HEMOGLOBIN 9.2 g/dl (12.0-16.0); LYMPHOCYTES % (AUTO) 13.8 % (21-51); MEAN CORPUSCULAR HEMOGLOBIN 30.4 PG (27.0-31.0); MEAN CORPUSCULAR HGB CONC 33.9 g/dL (33.0-36.5); MEAN CORPUSCULAR VOLUME 89.9 FL (78-98); MEAN PLATELET VOLUME 6.9 FL (7.4-10.4); MONOCYTES # (AUTO) 0.6 X10'3 (0-0.9); MONOCYTES % (AUTO) 9.2 % (2-12); NEUTROPHILS # (AUTO) 5.2 X10'3 (1.8-7.7); NEUTROPHILS % (AUTO) 74.4 % (42-75); PLATELET COUNT 184 X10'3 (140-440); RED BLOOD COUNT 3.03 X10'6 (4.20-5.60); RED CELL DISTRIBUTION WIDTH 16.1 % (11.5-14.5)
[2021-03-10 06:19] LABS: ALBUMIN 2.4 G/DL (3.4-5.0); ANION GAP 10 (8-16); BLOOD UREA NITROGEN 15 MG/DL (7-18); BUN/CREATININE RATIO 21.1 (6.6-38.0); CALCIUM 9.4 MG/DL (8.5-10.1); CHLORIDE 103 MMOL/L (99-107); CREATININE 0.71 MG/DL (0.40-0.90); GLUCOSE 161 MG/DL (70-104); MAGNESIUM 1.7 MG/DL (1.5-2.4); POTASSIUM 4.1 MMOL/L (3.5-5.1); SODIUM 136 MMOL/L (135-145); TOTAL CARBON DIOXIDE 23.5 MMOL/L (24-32); eGFR 80 ML/MIN
--- NOTE | 2021-03-10 06:45 | NUR ---
Patient in room ORTHO 4021A. I have received report from LEOBARDO Alvarado and had the opportunity to ask questions and assume patient care.
[2021-03-10] MEDS: K and/or MAG REPLACEMENT MC SCH ×2 (06:56→19:55)
[2021-03-10] MEDS: lactose-reduced food (Ensure High Protein) 237ml bottle PO SCH ×3 (06:56→18:00)
[2021-03-10] MEDS: diltiazem CD 120mg capsule (once-daily) PO SCH (07:47)
[2021-03-10] MEDS: docusate sod 100mg capsule PO SCH ×2 (07:49→20:42)
--- NOTE | 2021-03-10 11:43 | NUR ---
pt left floor for or
[2021-03-10] MEDS ORDERED: BUPIVAcaine 0.5% W/EPI /PF 30ml vial ONE (11:58)
[2021-03-10] MEDS ORDERED: labetalol 20mg/4ml (5mg/ml) syringe IV PRN (12:10)
[2021-03-10] MEDS ORDERED: morphine 4 MG/ML inj SYRINge IV PRN (12:10)
[2021-03-10] MEDS ORDERED: morphine 2 MG/ML inj. syringe IV PRN (12:10)
[2021-03-10] MEDS ORDERED: hydrALAZINE 20mg/ml inj. IV PRN (12:10)
[2021-03-10] MEDS ORDERED: fentaNYL/PF 50MCG/1 ML 2ML syringe IV PRN ×2 (12:10)
[2021-03-10] MEDS ORDERED: ringers solution, lacted 1,000 ML IV SCH (12:10)
[2021-03-10] MEDS ORDERED: ondansetron/PF 4mg/2ml inj IV PRN (12:10)
--- NOTE | 2021-03-10 12:26 | NUR ---
NOT DONE, PT IN OR Addendum: 03/10/21 at 1229 by Bita Martel RN Amended: Links added.
[2021-03-10] MEDS ORDERED: MIDAZolam 1 MG/ML 5ML VIAL ONE (12:35)
[2021-03-10] MEDS ORDERED: fentaNYL/PF 50MCG/1 ML 2ML syringe ONE (12:35)
[2021-03-10] MEDS ORDERED: albumin (Human) 5% 250ml 250 ML IV ONE (12:55)
[2021-03-10] MEDS ORDERED: phenylephrine 10mg/ml inj. ONE (13:02)
--- NOTE | 2021-03-10 13:55 | NUR ---
Received from OR via BED , accompanied by Anesthesiologist and report given by Anesthesiologist. PATIENT WAKING UP, NO S/S OF PAIN, V/S WNL, SCD ON, 20G TO RUE, drsg to LEFT AND RIGHT FEMUR LATERAL SIDES-CDI
--- NOTE | 2021-03-10 14:09 | NUR ---
RECEIVED REPORT FROM LYNNETTE IN RECOVERY
--- NOTE | 2021-03-10 14:55 | NUR ---
PATIENT ORIENTED X4, DENIES PAIN, V/S WNL, SCD ON, 20G TO RUE, drsg to LEFT AND RIGHT FEMUR LATERAL SIDES-CDI . PATIENT TAKEN TO ORTHOPEDIC FLOOR AND HOOKED UP TO MONITORS IN ROOM AND REPORT GIVEN TO RN WHO HAS TAKEN OVER PATIENT CARE.
--- NOTE | 2021-03-10 18:46 | NUR ---
Problems reprioritized. Patient report given, questions answered & plan of care reviewed with LEOBARDO RAVI.
[2021-03-10] MEDS: insulin glargine (Lantus) pen - multi-dose SQ SCH (20:47)
[2021-03-10] MEDS: ceFAZolin/D5W- 1GM premix 50 ML IV SCH (22:05)
--- NOTE | 2021-03-11 00:30 | NUR ---
Student documentation: I have reviewed and agree with all interventions, assessments performed and documented by Donna. Student Medication Administration: For this medication-pass time frame, all medication were reviewed, dispensed, administered and documented per hospital policy by Donna.
[2021-03-11 02:00] VITALS: BP 152/52
[2021-03-11] MEDS: HYDROcodone/acetaminophen 5mg/325mg tablet PO PRN ×3 (05:27→19:55)
[2021-03-11] MEDS: magnesium hydroxide 30ml (MOM) UD suspension PO PRN (05:27)
[2021-03-11] MEDS: ceFAZolin/D5W- 1GM premix 50 ML IV SCH (05:29)
[2021-03-11 06:00] VITALS: BP 126/53
[2021-03-11 06:13] LABS: BASOPHILS % (AUTO) 0.4 % (0-1); EOSINOPHILS # (AUTO) 0.1 X10'3 (0-0.9); EOSINOPHILS % (AUTO) 2.3 % (0-6); HEMATOCRIT 24.4 % (35.0-45.0); HEMOGLOBIN 8.2 g/dl (12.0-16.0); LYMPHOCYTES # (AUTO) 0.8 X10'3 (1.1-4.8); LYMPHOCYTES % (AUTO) 14.1 % (21-51); MEAN CORPUSCULAR HEMOGLOBIN 30.6 PG (27.0-31.0); MEAN CORPUSCULAR HGB CONC 33.5 g/dL (33.0-36.5); MEAN CORPUSCULAR VOLUME 91.3 FL (78-98); MEAN PLATELET VOLUME 6.5 FL (7.4-10.4); MONOCYTES # (AUTO) 0.6 X10'3 (0-0.9); MONOCYTES % (AUTO) 9.4 % (2-12); NEUTROPHILS # (AUTO) 4.5 X10'3 (1.8-7.7); NEUTROPHILS % (AUTO) 73.8 % (42-75); PLATELET COUNT 184 X10'3 (140-440); RED BLOOD COUNT 2.67 X10'6 (4.20-5.60); RED CELL DISTRIBUTION WIDTH 15.9 % (11.5-14.5)
[2021-03-11 06:17] LABS: ANION GAP 10 (8-16); CHLORIDE 105 MMOL/L (99-107); MAGNESIUM 1.7 MG/DL (1.5-2.4); POTASSIUM 4.1 MMOL/L (3.5-5.1); SODIUM 139 MMOL/L (135-145); TOTAL CARBON DIOXIDE 23.6 MMOL/L (24-32)
--- NOTE | 2021-03-11 06:18 | NUR ---
Report given to Kathy BOOTH.
--- NOTE | 2021-03-11 06:20 | NUR ---
received report from liban estevez
[2021-03-11] MEDS: K and/or MAG REPLACEMENT MC SCH ×2 (07:27→20:00)
[2021-03-11] MEDS: lactose-reduced food (Ensure High Protein) 237ml bottle PO SCH ×3 (07:29→18:00)
[2021-03-11] MEDS: docusate sod 100mg capsule PO SCH ×2 (07:32→19:56)
[2021-03-11] MEDS: diltiazem CD 120mg capsule (once-daily) PO SCH (07:32)
[2021-03-11] MEDS: insulin Lispro (HumaLOG) vial - multi-dose SQ SCH ×3 (08:31→18:56)
[2021-03-11 10:00] VITALS: BP 133/57
--- NOTE | 2021-03-11 11:54 | NUR ---
Student Medication Administration: For this medication-pass time frame, all medication were reviewed, dispensed, administered and documented per hospital policy by SN Bear and was performed with Pau primary care RN.
--- NOTE | 2021-03-11 12:01 | NUR ---
Patient in room ORTHO 4021. I have received report from Cat T Student RN and had the opportunity to ask questions and assume patient care.
[2021-03-11 18:00] VITALS: BP 139/56
--- NOTE | 2021-03-11 18:04 | NUR ---
gave report to liban mckinley
--- NOTE | 2021-03-11 18:10 | NUR ---
Problems reprioritized. Patient report given, questions answered & plan of care reviewed with Pilar hourly shift manager RN.
--- NOTE | 2021-03-11 18:36 | NUR ---
Patient in room ORTHO 4021. I have received report from Kathy BOOTH and had the opportunity to ask questions and assume patient care.
--- NOTE | 2021-03-11 19:00 | NUR ---
She only took bites of her main dish and drank all of the ensure. Addendum: 03/12/21 at 0138 by Pilar Titus RN Amended: Links added.
[2021-03-11] MEDS: enoxaparin 40mg/0.4ml syringe SUBCUT SCH (19:56)
[2021-03-11] MEDS ORDERED: ceFAZolin/D5W- 1GM premix 50 ML IV SCH (20:00)
--- NOTE | 2021-03-11 20:30 | NUR ---
Pt did say that she has shortness of breath at times due to her left rib area that hurts and that she has sleep apnea and needs her machine at times for sleep. Addendum: 03/12/21 at 0208 by Pilar Titus RN Amended: Links added.
--- NOTE | 2021-03-11 21:30 | NUR ---
Patient did tell me that she believes her massage therapist saw an abscess on her buttock and had applied lidocaine type of ointment to it. So there might have been some type of injury to her skin but it wasn't documented this visit.
[2021-03-11] MEDS: insulin glargine (Lantus) pen - multi-dose SQ SCH (21:41)
[2021-03-11 22:00] VITALS: BP 133/51
--- NOTE | 2021-03-11 22:00 | NUR ---
String cheese given as a snack
[2021-03-11] MEDS: normal saline 1000ml 1,000 ML IV SCH (22:40)
[2021-03-12] MEDS: magnesium hydroxide 30ml (MOM) UD suspension PO PRN (05:31)
[2021-03-12] MEDS: HYDROcodone/acetaminophen 5mg/325mg tablet PO PRN ×4 (05:32→23:37)
[2021-03-12 06:00] VITALS: BP 120/48
[2021-03-12 06:14] LABS: BASOPHILS % (AUTO) 0.6 % (0-1); EOSINOPHILS # (AUTO) 0.2 X10'3 (0-0.9); EOSINOPHILS % (AUTO) 3.3 % (0-6); HEMATOCRIT 23.6 % (35.0-45.0); HEMOGLOBIN 7.9 g/dl (12.0-16.0); LYMPHOCYTES # (AUTO) 0.9 X10'3 (1.1-4.8); LYMPHOCYTES % (AUTO) 13.9 % (21-51); MEAN CORPUSCULAR HEMOGLOBIN 30.5 PG (27.0-31.0); MEAN CORPUSCULAR HGB CONC 33.6 g/dL (33.0-36.5); MEAN CORPUSCULAR VOLUME 90.8 FL (78-98); MEAN PLATELET VOLUME 6.7 FL (7.4-10.4); MONOCYTES # (AUTO) 0.7 X10'3 (0-0.9); MONOCYTES % (AUTO) 10.1 % (2-12); NEUTROPHILS # (AUTO) 4.7 X10'3 (1.8-7.7); NEUTROPHILS % (AUTO) 72.1 % (42-75); PLATELET COUNT 203 X10'3 (140-440); RED CELL DISTRIBUTION WIDTH 15.8 % (11.5-14.5); WHITE BLOOD COUNT 6.5 X10'3 (4.5-11.0)
[2021-03-12 06:20] LABS: ANION GAP 9 (8-16); CHLORIDE 103 MMOL/L (99-107); MAGNESIUM 1.7 MG/DL (1.5-2.4); POTASSIUM 4.2 MMOL/L (3.5-5.1); SODIUM 137 MMOL/L (135-145); TOTAL CARBON DIOXIDE 25.4 MMOL/L (24-32)
--- NOTE | 2021-03-12 06:32 | NUR ---
Problems reprioritized. Patient report given, questions answered & plan of care reviewed with Mikal BOOTH.
[2021-03-12] MEDS: K and/or MAG REPLACEMENT MC SCH ×2 (08:00→19:50)
[2021-03-12] MEDS: insulin Lispro (HumaLOG) vial - multi-dose SQ SCH ×3 (08:14→19:41)
[2021-03-12] MEDS: docusate sod 100mg capsule PO SCH ×2 (08:15→19:36)
[2021-03-12] MEDS: diltiazem CD 120mg capsule (once-daily) PO SCH (08:15)
[2021-03-12] MEDS: lactose-reduced food (Ensure High Protein) 237ml bottle PO SCH ×3 (08:15→18:00)
--- NOTE | 2021-03-12 10:00 | NUR ---
Pt continued to report R side abd pain since last noc. Pt on phone with her son and her son reported pt had this same pain when she fell prior to admit, but it went away until last noc. Dr. Carlisle paged for findings. Abd soft, large, + flatus no BM since prior to admit 03/05.
[2021-03-12 10:06] VITALS: BP 132/58
[2021-03-12] MEDS ORDERED: bisacodyl 10mg suppository rectal RC PRN (10:30)
--- NOTE | 2021-03-12 10:59 | NUR ---
Informed pt of KUB and supp. per order. Pt declined to have interventions at this time for abd pain. Pt stated that the xray may be harmful for her body at this time due to the CA.
--- NOTE | 2021-03-12 12:20 | NUR ---
Reassessment: Pt PO intake 0-25% at meals on a carb controlled diet. PO intake of ONS Ensure high protein is 75-100%. Pt is not currently meeting estimated nutrient needs. Poor PO intake could be impacted by no BM x 7 days. Last BM 03/05 with routine and PRN bowel care available. Discussed with dietary to send prunes and prune juice at next meal. Zev 10 with surgical wounds on the left and right hip s/p IM luz maria surgeries, no edema present. Will continue to monitor for further nutrition intervention. Rec: 1. continue carb controlled diet; encourage PO; no milk to drink per pt 2. ensure high protein TIDWM; encourage PO 3. routine bowel care; consider additional w/ 7 days constipation post-op 4. scaled wt this admit; subsequent weekly wts Addendum: 03/12/21 at 1220 by Mechelle LUZ [employer]IN[employer] ASS[employer]ATE RD Amended: Links added. Addendum: 03/12/21 at 1232 by Mechelle LUZ [employer]IN[employer] ASSOC[employer]ATE RD Correction will send power pudding in place of prunes and prune juice given carb controlled diet. Discussed with dietary. Addendum: 03/12/21 at [address] I have reviewed and agree with note by physician/internist. Yue Ba RD
[2021-03-12 18:00] VITALS: BP 122/55
[2021-03-12] MEDS: enoxaparin 40mg/0.4ml syringe SUBCUT SCH (19:37)
[2021-03-12] MEDS: insulin glargine (Lantus) pen - multi-dose SQ SCH (21:00)
[2021-03-12 22:00] VITALS: BP 133/50
--- NOTE | 2021-03-13 02:27 | NUR ---
Reference # [id number] for [facility] bed that was placed as ordered.
--- NOTE | 2021-03-13 06:05 | NUR ---
Patient in room ORTHO 4021. I have received report from Jenny BOOTH and had the opportunity to ask questions and assume patient care.
--- NOTE | 2021-03-13 06:12 | NUR ---
Problems reprioritized. Patient report given, questions answered & plan of care reviewed with LEOBARDO Mendez.
--- NOTE | 2021-03-13 06:30 | NUR ---
Patient in room ORTHO 4021. I have received report from LEOBARDO Alvarado and had the opportunity to ask questions and assume patient care.
[2021-03-13 07:00] VITALS: BP 122/55
[2021-03-13 07:35] LABS: BASOPHILS % (AUTO) 0.6 % (0-1); EOSINOPHILS # (AUTO) 0.2 X10'3 (0-0.9); EOSINOPHILS % (AUTO) 3.8 % (0-6); HEMATOCRIT 24.1 % (35.0-45.0); HEMOGLOBIN 8.1 g/dl (12.0-16.0); LYMPHOCYTES # (AUTO) 0.8 X10'3 (1.1-4.8); LYMPHOCYTES % (AUTO) 13.1 % (21-51); MEAN CORPUSCULAR HEMOGLOBIN 30.4 PG (27.0-31.0); MEAN CORPUSCULAR HGB CONC 33.8 g/dL (33.0-36.5); MEAN CORPUSCULAR VOLUME 90.1 FL (78-98); MEAN PLATELET VOLUME 6.6 FL (7.4-10.4); MONOCYTES # (AUTO) 0.7 X10'3 (0-0.9); MONOCYTES % (AUTO) 10.9 % (2-12); NEUTROPHILS # (AUTO) 4.5 X10'3 (1.8-7.7); NEUTROPHILS % (AUTO) 71.6 % (42-75); PLATELET COUNT 244 X10'3 (140-440); RED BLOOD COUNT 2.68 X10'6 (4.20-5.60); WHITE BLOOD COUNT 6.3 X10'3 (4.5-11.0)
[2021-03-13 07:47] LABS: ANION GAP 9 (8-16); CHLORIDE 103 MMOL/L (99-107); POTASSIUM 4.5 MMOL/L (3.5-5.1); SODIUM 139 MMOL/L (135-145); TOTAL CARBON DIOXIDE 27.1 MMOL/L (24-32)
[2021-03-13] MEDS: lactose-reduced food (Ensure High Protein) 237ml bottle PO SCH ×3 (08:00→18:50)
[2021-03-13] MEDS: K and/or MAG REPLACEMENT MC SCH ×2 (08:00→20:00)
[2021-03-13] MEDS: diltiazem CD 120mg capsule (once-daily) PO SCH (08:14)
[2021-03-13] MEDS: HYDROcodone/acetaminophen 5mg/325mg tablet PO PRN ×2 (08:17→12:36)
[2021-03-13] MEDS: docusate sod 100mg capsule PO SCH ×2 (08:17→19:07)
[2021-03-13 08:43] LABS: % IRON SATURATION 24 % (11-46); IRON 30 UG/DL (49-151); TOTAL IRON BINDING CAPACITY 125 UG/DL (259-388)
[2021-03-13 09:09] LABS: TOTAL CELLS COUNTED 100
[2021-03-13 09:10] LABS: PLATELET ESTIMATE NORMAL; POLYCHROMASIA FEW
[2021-03-13 11:00] VITALS: BP 155/63
[2021-03-13] MEDS: insulin Lispro (HumaLOG) vial - multi-dose SQ SCH ×2 (14:27→18:54)
[2021-03-13] MEDS: ferrous sulfate 325mg tablet PO SCH (17:39)
[2021-03-13] MEDS: ascorbic acid 500mg tablet PO SCH (17:39)
[2021-03-13 18:00] VITALS: BP 141/70
--- NOTE | 2021-03-13 18:12 | NUR ---
Problems reprioritized. Patient report given, questions answered & plan of care reviewed with Jenny louie.
[2021-03-13] MEDS: oxyCODONE/APAP 5-325mg tablet PO PRN (19:08)
[2021-03-13] MEDS: enoxaparin 40mg/0.4ml syringe SUBCUT SCH (19:09)
[2021-03-13] MEDS: insulin glargine (Lantus) pen - multi-dose SQ SCH (21:07)
[2021-03-13 22:00] VITALS: BP 122/52
[2021-03-13] MEDS: normal saline 1000ml 1,000 ML IV SCH (22:40)
[2021-03-14 05:30] VITALS: BP 170/69
--- NOTE | 2021-03-14 06:15 | NUR ---
Patient in room ORTHO 4021. I have received report from LEOBARDO Alvarado and had the opportunity to ask questions and assume patient care.
--- NOTE | 2021-03-14 06:32 | NUR ---
Problems reprioritized. Patient report given, questions answered & plan of care reviewed with LEOBADRO Gauthier.
[2021-03-14 07:35] LABS: BASOPHILS % (AUTO) 0.7 % (0-1); EOSINOPHILS # (AUTO) 0.2 X10'3 (0-0.9); EOSINOPHILS % (AUTO) 2.9 % (0-6); HEMATOCRIT 25.5 % (35.0-45.0); HEMOGLOBIN 8.5 g/dl (12.0-16.0); LYMPHOCYTES % (AUTO) 13.7 % (21-51); MEAN CORPUSCULAR HGB CONC 33.1 g/dL (33.0-36.5); MEAN CORPUSCULAR VOLUME 90.6 FL (78-98); MEAN PLATELET VOLUME 6.5 FL (7.4-10.4); MONOCYTES # (AUTO) 0.8 X10'3 (0-0.9); MONOCYTES % (AUTO) 10.9 % (2-12); NEUTROPHILS # (AUTO) 5.2 X10'3 (1.8-7.7); NEUTROPHILS % (AUTO) 71.8 % (42-75); PLATELET COUNT 288 X10'3 (140-440); RED BLOOD COUNT 2.82 X10'6 (4.20-5.60); RED CELL DISTRIBUTION WIDTH 16.4 % (11.5-14.5); WHITE BLOOD COUNT 7.3 X10'3 (4.5-11.0)
[2021-03-14] MEDS: oxyCODONE/APAP 5-325mg tablet PO PRN ×2 (07:42→19:40)
[2021-03-14] MEDS: lactose-reduced food (Ensure High Protein) 237ml bottle PO SCH ×3 (08:00→18:00)
[2021-03-14] MEDS: K and/or MAG REPLACEMENT MC SCH ×2 (08:00→19:21)
[2021-03-14] MEDS ORDERED: hydrALAZINE 20mg/ml inj. IV PRN (09:00)
[2021-03-14] MEDS: ascorbic acid 500mg tablet PO SCH ×2 (09:37→17:15)
[2021-03-14] MEDS: ferrous sulfate 325mg tablet PO SCH ×2 (09:37→17:15)
[2021-03-14] MEDS: insulin Lispro (HumaLOG) vial - multi-dose SQ SCH ×2 (09:43→19:33)
[2021-03-14 10:00] VITALS: BP 131/60
[2021-03-14] MEDS ORDERED: mag hydrox/Alum hydrox/simeth 30ml oral suspension PO PRN (14:30)
[2021-03-14] MEDS: normal saline 1000ml 1,000 ML IV SCH ×2 (17:54→18:35)
[2021-03-14 18:00] VITALS: BP 143/63
--- NOTE | 2021-03-14 18:20 | NUR ---
Problems reprioritized. Patient report given, questions answered & plan of care reviewed with LEOBARDO Alvarado.
[2021-03-14] MEDS: docusate sod 100mg capsule PO SCH (19:33)
[2021-03-14] MEDS: enoxaparin 40mg/0.4ml syringe SUBCUT SCH (19:35)
[2021-03-14] MEDS: methylnaltrexone br 12mg/0.6ml inj***SubQ only SQ SCH (19:36)
[2021-03-14] MEDS: insulin glargine (Lantus) pen - multi-dose SQ SCH (21:31)
[2021-03-14 22:00] VITALS: BP 126/54
[2021-03-15] MEDS: normal saline 1000ml 1,000 ML IV SCH ×3 (03:51→23:39)
[2021-03-15 06:00] VITALS: BP 124/62
--- NOTE | 2021-03-15 06:48 | NUR ---
Patient in room ORTHO 4021. I have received report from LEOBARDO Alvarado and had the opportunity to ask questions and assume patient care.
[2021-03-15 07:12] LABS: BASOPHILS % (AUTO) 0.5 % (0-1); EOSINOPHILS # (AUTO) 0.2 X10'3 (0-0.9); EOSINOPHILS % (AUTO) 2.5 % (0-6); HEMATOCRIT 22.6 % (35.0-45.0); HEMOGLOBIN 7.6 g/dl (12.0-16.0); LYMPHOCYTES % (AUTO) 12.9 % (21-51); MEAN CORPUSCULAR HEMOGLOBIN 30.5 PG (27.0-31.0); MEAN CORPUSCULAR HGB CONC 33.5 g/dL (33.0-36.5); MEAN CORPUSCULAR VOLUME 91.1 FL (78-98); MEAN PLATELET VOLUME 6.6 FL (7.4-10.4); MONOCYTES # (AUTO) 0.8 X10'3 (0-0.9); MONOCYTES % (AUTO) 10.2 % (2-12); NEUTROPHILS # (AUTO) 5.9 X10'3 (1.8-7.7); NEUTROPHILS % (AUTO) 73.9 % (42-75); PLATELET COUNT 315 X10'3 (140-440); RED BLOOD COUNT 2.49 X10'6 (4.20-5.60); RED CELL DISTRIBUTION WIDTH 16.4 % (11.5-14.5)
[2021-03-15 07:18] LABS: ALANINE AMINOTRANSFERASE 18 U/L (12-78); ALBUMIN 1.8 G/DL (3.4-5.0); ALBUMIN/GLOBULIN RATIO 0.5 (1.1-1.5); ALKALINE PHOSPHATASE 544 IU/L (46-116); ANION GAP 8 (8-16); ASPARTATE AMINO TRANSFERASE 136 U/L (10-37); BILIRUBIN,TOTAL 0.7 MG/DL (0.1-1.0); BLOOD UREA NITROGEN 19 MG/DL (7-18); BUN/CREATININE RATIO 38.8 (6.6-38.0); CALCIUM 9.3 MG/DL (8.5-10.1); CHLORIDE 105 MMOL/L (99-107); CREATININE 0.49 MG/DL (0.40-0.90); GLUCOSE 123 MG/DL (70-104); POTASSIUM 4.3 MMOL/L (3.5-5.1); SODIUM 139 MMOL/L (135-145); TOTAL CARBON DIOXIDE 25.9 MMOL/L (24-32); TOTAL PROTEIN 5.8 G/DL (6.4-8.2); eGFR > 90 ML/MIN
[2021-03-15] MEDS: K and/or MAG REPLACEMENT MC SCH ×2 (08:00→19:40)
[2021-03-15] MEDS: ferrous sulfate 325mg tablet PO SCH ×2 (08:32→17:58)
[2021-03-15] MEDS: diltiazem CD 120mg capsule (once-daily) PO SCH (08:36)
[2021-03-15] MEDS: docusate sod 100mg capsule PO SCH ×2 (08:39→19:33)
[2021-03-15] MEDS: ascorbic acid 500mg tablet PO SCH ×2 (08:41→17:58)
[2021-03-15] MEDS: lactose-reduced food (Ensure High Protein) 237ml bottle PO SCH ×3 (08:58→17:59)
[2021-03-15 10:00] VITALS: BP 107/68
--- NOTE | 2021-03-15 11:48 | NUR ---
acting as certified nursing assistant instructor, i reviewed student nurse documentation
[2021-03-15] MEDS: lactulose 20gm/30ml cup PO SCH ×2 (14:03→19:39)
[2021-03-15] MEDS: insulin Lispro (HumaLOG) vial - multi-dose SQ SCH ×2 (14:07→19:25)
--- NOTE | 2021-03-15 14:26 | NUR ---
Reassessment: Pt PO continues to be poor 0-25% vs refusing most meals w/ PO 75-100% ensure high proteins TIDWM. Mainly only kcals from ensures though 160 kcal/bottle so on best days since admit w/ meals PO pt only intake ~630 kcals/day. Given poor PO 10 days since admit in addition to generalized severe weakness pt meets severe malnutrition criteria; notified. LBM 03/05 receiving routine colace as well as iron and relistor started 03/14 w/ PRN lactulose ordered to start 1400 3 doses today per EMR. 10 days constipation likely to impact PO intake of meals. Will continue to monitor for additional bowel care needs and PO Acceptance/tolerance this admit. Rec: 1. continue carb controlled diet; encourage PO; no milk to drink per pt 2. consider liberalization to regular diet given poor PO hx 3. ensure high protein TIDWM; encourage PO 4. routine bowel care; opioid antagonist per w/ 10 days constipation 5. scaled wt this admit; subsequent weekly wts Addendum: 03/15/21 at [address] RD Amended: Links added.
[2021-03-15 14:49] LABS: ANISOCYTOSIS 1+; BURR CELLS FEW; PLATELET ESTIMATE NORMAL; SCHISTOCYTES FEW
[2021-03-15 18:00] VITALS: BP 144/65
--- NOTE | 2021-03-15 18:33 | NUR ---
Problems reprioritized. Patient report given, questions answered & plan of care reviewed with LEOBARDO Escobar and LEOBARDO Alvarado.
[2021-03-15] MEDS: enoxaparin 40mg/0.4ml syringe SUBCUT SCH (19:39)
[2021-03-15] MEDS: insulin glargine (Lantus) pen - multi-dose SQ SCH (21:29)
[2021-03-15] MEDS: oxyCODONE/APAP 5-325mg tablet PO PRN (21:31)
[2021-03-15 22:00] VITALS: BP 125/43
[2021-03-16] MEDS: lactulose 20gm/30ml cup PO SCH (02:00)
[2021-03-16] MEDS: oxyCODONE/APAP 5-325mg tablet PO PRN (05:30)
--- NOTE | 2021-03-16 06:53 | NUR ---
Reviewed charting and medication administration completed by Colleen Escobar RN.
[2021-03-16] MEDS: lactose-reduced food (Ensure High Protein) 237ml bottle PO SCH ×3 (08:00→18:42)
[2021-03-16] MEDS: K and/or MAG REPLACEMENT MC SCH ×2 (08:00→18:56)
[2021-03-16] MEDS: methylnaltrexone br 12mg/0.6ml inj***SubQ only SQ SCH (08:00)
[2021-03-16] MEDS: diltiazem CD 120mg capsule (once-daily) PO SCH (08:50)
[2021-03-16] MEDS: docusate sod 100mg capsule PO SCH ×2 (08:50→20:44)
[2021-03-16] MEDS: ferrous sulfate 325mg tablet PO SCH ×2 (08:50→18:42)
[2021-03-16] MEDS: ascorbic acid 500mg tablet PO SCH ×2 (08:50→18:42)
[2021-03-16 09:13] LABS: BASOPHILS # (AUTO) 0.1 X10'3 (0-0.2); BASOPHILS % (AUTO) 0.6 % (0-1); EOSINOPHILS # (AUTO) 0.2 X10'3 (0-0.9); EOSINOPHILS % (AUTO) 2.5 % (0-6); HEMATOCRIT 24.2 % (35.0-45.0); HEMOGLOBIN 8.2 g/dl (12.0-16.0); LYMPHOCYTES # (AUTO) 1.2 X10'3 (1.1-4.8); LYMPHOCYTES % (AUTO) 13.7 % (21-51); MEAN CORPUSCULAR HEMOGLOBIN 30.7 PG (27.0-31.0); MEAN CORPUSCULAR HGB CONC 33.7 g/dL (33.0-36.5); MEAN CORPUSCULAR VOLUME 91.1 FL (78-98); MEAN PLATELET VOLUME 6.1 FL (7.4-10.4); MONOCYTES # (AUTO) 0.7 X10'3 (0-0.9); MONOCYTES % (AUTO) 7.9 % (2-12); NEUTROPHILS # (AUTO) 6.8 X10'3 (1.8-7.7); NEUTROPHILS % (AUTO) 75.3 % (42-75); PLATELET COUNT 456 X10'3 (140-440); RED BLOOD COUNT 2.66 X10'6 (4.20-5.60); RED CELL DISTRIBUTION WIDTH 16.6 % (11.5-14.5)
[2021-03-16 09:27] LABS: ALANINE AMINOTRANSFERASE 23 U/L (12-78); ALBUMIN 1.9 G/DL (3.4-5.0); ALBUMIN/GLOBULIN RATIO 0.4 (1.1-1.5); ALKALINE PHOSPHATASE 583 IU/L (46-116); ANION GAP 9 (8-16); ASPARTATE AMINO TRANSFERASE 91 U/L (10-37); BILIRUBIN,TOTAL 0.7 MG/DL (0.1-1.0); BLOOD UREA NITROGEN 17 MG/DL (7-18); BUN/CREATININE RATIO 32.7 (6.6-38.0); CALCIUM 9.3 MG/DL (8.5-10.1); CHLORIDE 103 MMOL/L (99-107); CREATININE 0.52 MG/DL (0.40-0.90); GLUCOSE 144 MG/DL (70-104); SODIUM 138 MMOL/L (135-145); TOTAL CARBON DIOXIDE 26.2 MMOL/L (24-32); TOTAL PROTEIN 6.2 G/DL (6.4-8.2); eGFR > 90 ML/MIN
[2021-03-16 11:51] LABS: ANISOCYTOSIS 1+; PLATELET ESTIMATE NORMAL; TOTAL CELLS COUNTED 100
[2021-03-16 11:52] LABS: BURR CELLS FEW; SCHISTOCYTES FEW
[2021-03-16] MEDS: normal saline 1000ml 1,000 ML IV SCH ×2 (12:14→22:34)
[2021-03-16] MEDS: insulin Lispro (HumaLOG) vial - multi-dose SQ SCH ×2 (13:33→18:46)
[2021-03-16 18:00] VITALS: BP 156/74
[2021-03-16] MEDS: enoxaparin 40mg/0.4ml syringe SUBCUT SCH (20:46)
[2021-03-16] MEDS: insulin glargine (Lantus) pen - multi-dose SQ SCH (20:48)
[2021-03-16 22:00] VITALS: BP 156/64
[2021-03-16] MEDS ORDERED: diphenhydrAMINE 50 mg/ml inj IV ONE (22:15)
[2021-03-16] MEDS: HYDROcodone/acetaminophen 10/325mg tab PO PRN (22:40)
[2021-03-17 05:47] LABS: BASOPHILS % (AUTO) 0.6 % (0-1); EOSINOPHILS # (AUTO) 0.2 X10'3 (0-0.9); EOSINOPHILS % (AUTO) 2.5 % (0-6); HEMATOCRIT 24.1 % (35.0-45.0); HEMOGLOBIN 7.9 g/dl (12.0-16.0); LYMPHOCYTES % (AUTO) 13.6 % (21-51); MEAN CORPUSCULAR HEMOGLOBIN 29.9 PG (27.0-31.0); MEAN CORPUSCULAR HGB CONC 32.9 g/dL (33.0-36.5); MEAN CORPUSCULAR VOLUME 90.8 FL (78-98); MEAN PLATELET VOLUME 6.1 FL (7.4-10.4); MONOCYTES # (AUTO) 0.6 X10'3 (0-0.9); MONOCYTES % (AUTO) 8.1 % (2-12); NEUTROPHILS # (AUTO) 5.7 X10'3 (1.8-7.7); NEUTROPHILS % (AUTO) 75.2 % (42-75); PLATELET COUNT 404 X10'3 (140-440); RED BLOOD COUNT 2.65 X10'6 (4.20-5.60); RED CELL DISTRIBUTION WIDTH 16.2 % (11.5-14.5); WHITE BLOOD COUNT 7.6 X10'3 (4.5-11.0)
[2021-03-17 06:01] LABS: ALANINE AMINOTRANSFERASE 24 U/L (12-78); ALBUMIN 1.8 G/DL (3.4-5.0); ALBUMIN/GLOBULIN RATIO 0.4 (1.1-1.5); ALKALINE PHOSPHATASE 533 IU/L (46-116); ANION GAP 7 (8-16); ASPARTATE AMINO TRANSFERASE 67 U/L (10-37); BILIRUBIN,TOTAL 0.6 MG/DL (0.1-1.0); BLOOD UREA NITROGEN 17 MG/DL (7-18); BUN/CREATININE RATIO 30.9 (6.6-38.0); CALCIUM 9.5 MG/DL (8.5-10.1); CHLORIDE 105 MMOL/L (99-107); CREATININE 0.55 MG/DL (0.40-0.90); GLUCOSE 128 MG/DL (70-104); POTASSIUM 4.1 MMOL/L (3.5-5.1); SODIUM 138 MMOL/L (135-145); eGFR > 90 ML/MIN
[2021-03-17 06:35] VITALS: BP 136/69
--- NOTE | 2021-03-17 06:43 | NUR ---
Patient in room ORTHO 4021. I have received report from zenaida louie and had the opportunity to ask questions and assume patient care.
[2021-03-17] MEDS: K and/or MAG REPLACEMENT MC SCH (07:48)
[2021-03-17] MEDS: docusate sod 100mg capsule PO SCH (07:49)
[2021-03-17] MEDS: diltiazem CD 120mg capsule (once-daily) PO SCH (07:50)
[2021-03-17] MEDS: HYDROcodone/acetaminophen 10/325mg tab PO PRN (07:50)
[2021-03-17] MEDS: ferrous sulfate 325mg tablet PO SCH (07:50)
[2021-03-17] MEDS: lactose-reduced food (Ensure High Protein) 237ml bottle PO SCH ×2 (07:50→13:03)
[2021-03-17] MEDS: ascorbic acid 500mg tablet PO SCH (07:50)
[2021-03-17] MEDS: normal saline 1000ml 1,000 ML IV SCH (07:55)
[2021-03-17] MEDS: insulin Lispro (HumaLOG) vial - multi-dose SQ SCH ×2 (09:37→14:54)
--- NOTE | 2021-03-17 12:11 | NUR ---
PAGED DR BRUMFIELD RE: PAGER ID: [phone] MESSAGE: PLEASE CALL RADIOLOGIST DR BLACK RE: YAHAIRA ESPINO. [phone] -TOBY [phone] Addendum: 03/17/21 at 1550 by Vaishnavi Knight RN DISREGARD NOTE, WRONG PT
[2021-03-17 14:58] VITALS: BP_SYST 119; BP_SYST 124; BP_DIAS 36; BP_DIAS 50
--- NOTE | 2021-03-17 17:07 | NUR ---
PT DISCHARGED IN STABLE CONDITION. LEFT FACILITY VIA [facility] TO [facility]. IV DC CANULA INTACT. FC IN PLACE. Addendum: 03/17/21 at 1709 by Vaishnavi Knight RN Amended: Links added.
== END 2021-03-17 17:00 | DRG 481 ==
LOC: ER 21:15 → ED HOLD 22:38 → ORTHO 4S 03-06 00:50
PROVIDERS: ADMIT Internal Medicine; ATTEND Family Medicine
PROC: 0QS904Z Reposition Left Femoral Shaft with Internal Fixation Device, Open Approach (ICD-10-PCS; principal; 2021-03-08 13:28)
PROC: 0QS806Z Reposition Right Femoral Shaft with Intramedullary Internal Fixation Device, Open Approach (ICD-10-PCS; 2021-03-10)
DX: M84.552A Pathological fracture in neoplastic disease, left femur, initial encounter for fracture (principal); C79.51 Secondary malignant neoplasm of bone; C50.919 Malignant neoplasm of unspecified site of unspecified female breast; Z20.822 Contact with and (suspected) exposure to COVID-19; E11.9 Type 2 diabetes mellitus without complications; G89.29 Other chronic pain; M54.9 Dorsalgia, unspecified; D64.9 Anemia, unspecified; I10 Essential (primary) hypertension; K59.00 Constipation, unspecified; W18.39XA Other fall on same level, initial encounter; Y93.89 Activity, other specified; Y92.89 Other specified places as the place of occurrence of the external cause; Y99.8 Other external cause status
CPT/HCPCS: 36415; 71045; 73551; 73552; 73590; 74018; 76000; 80048; 80051; 80053; 80305; 80320; 81003; 82948; 83036; 83540; 83550; 83690; 83735; 84484; 85007; 85008; 85025; 85610; 85730; 86885; 86900; 86901; 86920; 87081; 87426; 87635; 93005; 93306; 93308; 96374; 97110; 97162; 97164; 97530; 99285; A4618; A6222; A6258; A6449; A7000; C1713; G0378; J0690; J1200; J1650; J1815; J2212; J2250; J2270; J2370; J3010; J7030; J7120; P9045